=== PATIENT | female | born 1955 | race Caucasian/White ===

== ENCOUNTER → 2016-07-23 | Outpatient (CLI) | payer BC ==
[~2016-07-23] VITALS: Ht 152.4 cm; Wt 66.7 kg
[~2016-07-23] MED LIST: BENA10TA2 PO; CALC500T49 PO; LR 1,000 ML IV SCH; MAGN200T PO; PROPOFOL 200 MG/20 ML VIAL As Ordered ONE; RED1CAP5 PO; VITA100037 PO; VITA500T3 PO; ZYRT10TA2 PO
--- NOTE | 2016-07-23 09:07 | ROOR ---
Patient Name: Elisabeth Cortes Procedure Date: 07/23/2016 8:32 AM Date of : 1955 Age: 60 Room: [facility] Gender: Female Note Status: Finalized Procedure: Colonoscopy Indications: Abnormal CT of the GI tract, CT of abdomen showed thickening of the cecum/ileocecal valve area Providers: Garfield Nicole MD Referring MD: Racheal HASKINS MD Requesting Provider: Medicines: Monitored Anesthesia Care Complications: No immediate complications. Procedure: Pre-Anesthesia Assessment: - Prior to the procedure, a History and Physical was performed, and patient medications and allergies were reviewed. The patient is competent. The risks and benefits of the procedure and the sedation options and risks were discussed with the patient. All questions were answered and informed consent was obtained. Patient identification and proposed procedure were verified by the physician, the nurse and the anesthesiologist in the procedure room. Mental Status Examination: alert and oriented. Airway Examination: normal oropharyngeal airway and neck mobility. CV Examination: regular rate and rhythm. Prophylactic Antibiotics: The patient does not require prophylactic antibiotics. Prior Anticoagulants: The patient has taken no previous anticoagulant or antiplatelet agents. ASA Grade Assessment: II - A patient with mild systemic disease. After reviewing the risks and benefits, the patient was deemed in satisfactory condition to undergo the procedure. The anesthesia plan was to use monitored anesthesia care (MAC). Immediately prior to administration of medications, the patient was re-assessed for adequacy to receive sedatives. The heart rate, respiratory rate, oxygen saturations, blood pressure, adequacy of pulmonary ventilation, and response to care were monitored throughout the procedure. The physical status of the patient was re-assessed after the procedure. The Colonoscope was introduced through the anus and advanced to the terminal ileum, with identification of the appendiceal orifice and IC valve. The colonoscopy was performed without difficulty. The patient tolerated the procedure well. The quality of the bowel preparation was good. Findings: The perianal and digital rectal examinations were normal. A few medium-mouthed diverticula were found in the sigmoid colon and descending colon. The cecum and ileocecal valve and terminal ileum all appeared normal. Impression: - Diverticulosis in the sigmoid colon and in the descending colon. - No specimens collected. Recommendation: - Discharge patient to home. - Resume previous diet. - Continue present medications. - Repeat colonoscopy in 5 years for screening purposes. Garifeld Nicole MD 07/23/2016 9:06:31 AM Number of Addenda: 0 Note Initiated On: 07/23/2016 8:32 AM Estimated Blood Loss: Estimated blood loss: none.
[2016-07-23 09:15] VITALS: BP 177/83
== END | disposition home or self-care (01) ==
LOC: M OPP 06:48
PROVIDERS: ATTEND Surgery
DX: K57.30 Diverticulosis of large intestine without perforation or abscess without bleeding (principal); I10 Essential (primary) hypertension; M81.0 Age-related osteoporosis without current pathological fracture; R06.83 Snoring; Z80.0 Family history of malignant neoplasm of digestive organs; Z78.0 Asymptomatic menopausal state; Z79.899 Other long term (current) drug therapy; J30.89 Other allergic rhinitis

== ENCOUNTER → 2018-04-15 | Outpatient (CLI) | payer BC ==
[~2018-04-15] MED LIST changes: -BENA10TA2 PO; +BENA10TA6 PO; +GASTROGRAFIN SOLUTION 30ML (Q9963) As Ordered ONE; +ISOVUE-370 76% 100ML VIAL (Q9967) As Ordered ONE; -LR 1,000 ML IV SCH; -PROPOFOL 200 MG/20 ML VIAL As Ordered ONE; -VITA100037 PO; +VITA100067 PO; +ZYRT10CA5 PO; -ZYRT10TA2 PO
--- NOTE | 2018-04-15 15:17 | REP ---
Clinical: Right-sided abdominal pain. Technique: Axial contrast enhanced images from the lung bases to the pubic symphysis with oral (per protocol) and 100 ml Isovue 370 intravenous contrast material. Precontrast images of the abdomen as well as coronal and sagittal re-formations obtained. Findings: Liver demonstrates multiple hepatic hypodensities up to 10 mm which cannot be further characterized but likely represent small cysts. Spleen, pancreas, gallbladder, bilateral adrenal glands and kidneys are normal. Benign-appearing 1 cm left renal cyst noted. The enteric system is without obstruction or acute inflammatory process. Normal terminal ileum and appendix identified in the right lower quadrant. Pelvis demonstrates normal bladder and age-appropriate uterus/adnexa. No ascites. No free air. No significant adenopathy. Abdominal aorta and vasculature without aneurysm or dissection. Musculoskeletal structures are intact. Lung bases are clear. Impression: 1. Hepatic and left renal hypodensities up to 1 cm likely representing cysts which may be followed by ultrasound. 2. No further acute abdominopelvic pathology appreciated. Electronically Signed by Jaxon Hinojosa MD 04/15/2018 03:09 P
== END ==
LOC: M RAD 13:19
PROVIDERS: ATTEND Internal Medicine
DX: R10.9 Unspecified abdominal pain (principal); K76.89 Other specified diseases of liver; N28.1 Cyst of kidney, acquired
CPT/HCPCS: 74178; Q9963; Q9967

== ENCOUNTER → 2018-04-24 | Outpatient (CLI) | payer BC ==
[~2018-04-24] MED LIST changes: -GASTROGRAFIN SOLUTION 30ML (Q9963) As Ordered ONE; -ISOVUE-370 76% 100ML VIAL (Q9967) As Ordered ONE
--- NOTE | 2018-04-24 10:09 | REP ---
RIGHT UPPER QUADRANT ULTRASOUND: Real-time sonographic evaluation of the right upper quadrant performed. Gallbladder demonstrates no evidence of intraluminal sludge or calculi, wall thickening or pericholecystic fluid. There is no intrahepatic or extrahepatic biliary dilatation, common bile duct measuring 5 mm. Liver demonstrates diffuse heterogeneous increased echotexture compatible with diffuse fibrofatty infiltration. There are several liver cysts, one in the midline 9 x 7 x 8 mm, one on the right lobe adjacent to the gallbladder containing a septation measuring 1.7 x 1.1 x 1.9 cm. Another cyst in the right lobe measures 9 x 7 x 10 mm. Pancreas could not be visualized due to overlying bowel gas. Right kidney demonstrates no hydronephrosis with normal size 9.4 cm in length. There is no ascites. IMPRESSION: Diffuse fibrofatty infiltration of the liver. Three cysts are seen in the liver as discussed in detail above. Electronically Signed by Bertrand Hein MD 04/24/2018 01:41 P
== END ==
LOC: M RAD 07:57
PROVIDERS: ATTEND Internal Medicine
DX: K76.89 Other specified diseases of liver (principal); K76.0 Fatty (change of) liver, not elsewhere classified

== ENCOUNTER → 2018-08-31 | Outpatient (CLI) | payer BC, MEDICARE ==
[~2018-08-31] MED LIST changes: -BENA10TA6 PO; +BENA10TA9 PO; +CYAN500T8 PO; -VITA500T3 PO
--- NOTE | 2018-08-31 13:41 | REP ---
UNILATERAL DIAGNOSTIC RIGHT BREAST MAMMOGRAM WITH 3D TOMOSYNTHESIS: Unilateral mammogram right breast performed with 3D tomosynthesis. Additional spot compression views are performed laterally. Prior mammogram at [facility], 01/05/2018, showed a possible nodule in that region which appeared to compress out on additional spot compression views on 01/07/2018. There was no sonographic abnormality as well. Today's views are compared to those prior studies as well as 12/19/2016, 12/11/2015, and 12/07/2014. There is no evidence of a suspicious nodular density in the right breast. Tomographic appearance is unchanged compared back to the tomographic views performed 12/19/2016. There is no evidence of nodule, architectural distortion, or clustered microcalcifications. IMPRESSION: BIRADS 3: BI-RADS/ACR category 3 mammogram. Probably Benign Findings. ACR 3 probably benign. Once again, I do not see persistence of a suspected nodular density laterally in the right breast on today's views. Recommend the patient return to followup annual bilateral mammography 12/2018. This mammogram was interpreted with the aid of an FDA-approved computer-aided detection system. The patient states she/he had a clinical breast exam in 01/2018. The patient letter being requested is M3. Ana lifetime risk of breast cancer 8.2%. Electronically Signed by Bertrand Hein MD 08/31/2018 04:31 P
== END ==
LOC: M RAD 11:41
PROVIDERS: ATTEND Surgery
DX: N63.12 Unspecified lump in the right breast, upper inner quadrant (principal)
CPT/HCPCS: 77065; G0279

== ENCOUNTER → 2019-02-15 | Outpatient (CLI) | payer MEDICARE | LOC: M RAD 09:14 | PROVIDERS: ATTEND Internal Medicine | DX: Z12.31 Encounter for screening mammogram for malignant neoplasm of breast (principal); Z53.9 Procedure and treatment not carried out, unspecified reason ==

== ENCOUNTER → 2019-02-23 | Outpatient (CLI) | payer MEDICARE ==
--- NOTE | 2019-02-23 12:12 | REP ---
BILATERAL MAMMOGRAM WITH 3D TOMOSYNTHESIS AND DIAGNOSTIC MAMMOGRAM RIGHT BREAST: No family history of breast cancer. Tyrer-zi lifetime risk of breast cancer 8.2%. Comparison made with multiple prior exams, most recently 08/31/2018 and 01/07/2018. Somewhat nodular fibroglandular density laterally in the right breast was noted on the 01/05/2018 exam at [facility] and was stable on the 08/31/2018 exam. Today's images show moderate scattered fibroglandular tissue bilaterally. There is no change in the appearance of the breasts bilaterally when compared to the multiple prior exams. The focal nodular-appearing parenchymal opacity laterally on the right appears to compress out to an unchanged appearance compared to multiple prior exams dating back to 2015 with no persistent suspicious nodule present. No new nodule is seen. No clustered microcalcifications are seen. IMPRESSION: BIRADS 2: BI-RADS/ACR category 2 mammogram. Benign Findings. ACR 2 benign bilateral mammogram. No suspicious mass or clustered microcalcifications. Stable appearance of fibroglandular pattern. Recommend followup mammogram in 1 years. This mammogram was interpreted with the aid of an FDA-approved computer-aided detection system. A. Negative x-ray reports should not delay biopsy if a dominant or clinically suspicious mass is present. B. Four to eight percent of cancers are not identified by x-ray. C. Adenosis and dense breasts may obscure an underlying neoplasm. The patient letter being requested is M1. Electronically Signed by Bertrand Hein MD 02/24/2019 10:39 A
== END ==
LOC: M RAD 10:17
PROVIDERS: ATTEND Internal Medicine
DX: D48.61 Neoplasm of uncertain behavior of right breast (principal)
CPT/HCPCS: 77066; G0279

== ENCOUNTER → 2019-04-09 | Outpatient (CLI) | payer MEDICARE ==
[~2019-04-09] MED LIST changes: -BENA10TA9 PO; +BENA1TAB24 PO
--- NOTE | 2019-04-14 14:17 | DEXA ---
AP SPINE L1 - L4 0.980 -1.7 -0.1 LT FEMUR TOTAL 0.931 -0.6 0.6 LT NECK 0.827 -1.5 0.0 RT FEMUR TOTAL 0.879 -1.0 0.2 RT NECK 0.766 -2.0 -0.5 TOTAL BODY TOTAL OTHER COMMENTS: There is low bone density of the spine and hips. The decreased density of the spine does not represent a significant change. The increased density of the left hip does represent a significant change. The increased density of the right hip does represent a significant change. The density of the spine has increased 2.6% since the initial exam on 05/09/2010. The spine density has decreased 0.6% since the most recent exam on 12/19/2016. The density of the left hip has increased 4.5% since the initial exam on 05/09/2010. The density of the left hip has increased 2.8% since the most recent exam on 12/19/2016. The density of the right hip has decreased 2.0% since the initial exam on 05/09/2010. The density of the right hip has increased 7.2% since the most recent exam on 12/19/2016. FOLLOW-UP: Recommendation for the next bone density exam: 2 years. RUPERT
== END ==
LOC: M WHC 11:19
PROVIDERS: ATTEND Internal Medicine
DX: M81.0 Age-related osteoporosis without current pathological fracture (principal)

== ENCOUNTER → 2020-08-18 | Outpatient (CLI) | payer MEDICARE ==
[~2020-08-18] MED LIST changes: +CYAN500T14 PO; -CYAN500T8 PO
--- NOTE | 2020-08-18 08:50 | REPMRS ---
Patient History The patient states she had a clinical breast exam in 01/2020. Patient is postmenopausal. Family history of colorectal cancer at age 65 in mother. No Hormone Replacement Therapy Patient states no breast complaints today. Patient has signed MRS History Sheet. Digital Woman Screen Mammo: August 18, 2020 - Exam #: [id number] Bilateral CC and MLO view(s) were taken. Technologist: Barb Hopkins, Technologist Prior study comparison: February 23, 2019, digital mammo diagnostic bilateral, performed at [facility]. August 31, 2018, right breast digital mammo diagnostic unilateral, performed at [facility]. FINDINGS: There are scattered fibroglandular densities. Screening. Digital screening (2D) mammography was performed bilaterally in the CC and MLO projections. Additionally, breast tomosynthesis (3D mammography) was performed bilaterally in the CC and MLO projections. Todays exam was compared to the prior exams. By history, the patient has no complaints of a palpable breast abnormality or other significant breast complaints. The breasts are unchanged in size and shape. There are no sherin-soft tissue densities or spiculated masses. There is no internal architectural distortion. Once again, stable benign appearing calcifications are seen.There are no suspicious sherin-calcific clusters. Skin thickening or nipple retraction is not present. IMPRESSION: BI-RADS Category 2- Benign Findings. There is no evidence of malignant alteration of the breasts. Followup examination recommended in one year. The Volpara volumetric breast density category is B, there are scattered areas of fibroglandular density. This mammogram was read with the assistance of [employer],an FDA approved computer aided detection system for mammography. The lifetime Tyrer-Cuzick score is 7.8 % Negative x-ray reports should not delay surgical consultation if a dominant or clinically suspicious mass is present. Not all breast cancers can be identified by mammography. Therefore, we recommend that you continue to perform regular breast self-examination and physical examination and then promptly contact your physician of any concerns or changes. Adenosis and dense breasts may obscure an underlying neoplasm. Assessment: BI-RADS/ACR category 2 mammogram. Benign Findings. Recommendation Routine screening mammogram of both breasts in 1 year. Electronically Signed By: David Manuel DO 08/18/20 0849
== END ==
LOC: M WHC 07:50
PROVIDERS: ATTEND Internal Medicine
DX: Z12.31 Encounter for screening mammogram for malignant neoplasm of breast (principal); Z78.0 Asymptomatic menopausal state; Z80.8 Family history of malignant neoplasm of other organs or systems

== ENCOUNTER → 2021-09-20 | Outpatient (CLI) | payer MEDICARE | LOC: M WHC 08:55 | PROVIDERS: ATTEND Internal Medicine | DX: Z13.820 Encounter for screening for osteoporosis (principal); M81.0 Age-related osteoporosis without current pathological fracture; Z12.31 Encounter for screening mammogram for malignant neoplasm of breast; M85.88 Other specified disorders of bone density and structure, other site; M85.851 Other specified disorders of bone density and structure, right thigh; M85.852 Other specified disorders of bone density and structure, left thigh ==

== ENCOUNTER → 2021-11-11 | Outpatient (CLI) | payer MEDICARE ==
[~2021-11-11] MED LIST changes: +CALC500T68 PO; +CETI10TA4 PO; +D31000CA4 PO; +IBUP80TA PO
== END ==
LOC: M LABSMTC 11:30
PROVIDERS: ATTEND Anesthesiology
DX: Z01.812 Encounter for preprocedural laboratory examination (principal); Z20.822 Contact with and (suspected) exposure to COVID-19

== ENCOUNTER 2021-11-15 07:09 | Day surgery (SDC) | payer MEDICARE ==
[~2021-11-15] VITALS: Ht 152.4 cm; Wt 65.3 kg
[~2021-11-15 07:09] MED LIST changes: +NS 1,000 ML IV ONE
[2021-11-15] MEDS ORDERED: propofoL 200 MG/20 ML VIAL As Ordered ONE (08:31)
[2021-11-15] MEDS ORDERED: LIDOCAINE 2% 100MG/5ML SDV (FOR ANES.) As Ordered ONE (08:31)
[2021-11-15 08:50] VITALS: BP 145/70
== END 2021-11-15 09:03 | disposition home or self-care (01) ==
LOC: M OPP 07:09
PROVIDERS: ATTEND Surgery
DX: Z12.11 Encounter for screening for malignant neoplasm of colon (principal); Z86.010 Personal history of colon polyps; Z80.0 Family history of malignant neoplasm of digestive organs; K57.30 Diverticulosis of large intestine without perforation or abscess without bleeding; I10 Essential (primary) hypertension; M85.80 Other specified disorders of bone density and structure, unspecified site; Z79.1 Long term (current) use of non-steroidal anti-inflammatories (NSAID); Z79.811 Long term (current) use of aromatase inhibitors

== ENCOUNTER 2022-02-12 10:41 | Emergency (ER) | payer MEDICARE ==
[~2022-02-12] VITALS: Ht 152.4 cm; Wt 67.3 kg
[~2022-02-12 10:41] MED LIST changes: -NS 1,000 ML IV ONE
[2022-02-12] MEDS ORDERED: ACET-1349 PO (11:32)
[2022-02-12] MEDS ORDERED: GABAPENTIN 300 MG CAP PO ONE (17:25)
[2022-02-12 17:40] LABS: BASO % 0.6 % (0.0-1.0); EOS # 0.1 10^3/uL (0.0-0.5); EOS % 2.6 % (0.0-3.0); HEMATOCRIT 45.7 % (36.0-47.0); HEMOGLOBIN 15.1 g/dl (12.0-15.5); LYMPH # 1.4 10^3/uL (1.5-5.0); MEAN CORPUSCULAR HEMOGLOBIN 29.5 pg (27.0-33.0); MEAN CORPUSCULAR VOLUME 89.3 fl (80.0-96.0); MONO # 0.3 10^3/uL (0.0-0.8); MONO % 5.2 % (2.0-8.0); NEUTROPHILS # 3.2 10^3/uL (1.5-8.5); NEUTROPHILS % 63.4 % (36.0-66.0); PLATELET COUNT, AUTOMATED 288 10^3/uL (150-450); RED BLOOD COUNT 5.12 10^6/uL (4.00-5.40)
[2022-02-12 18:17] LABS: CHLORIDE LEVEL 103 MMOL/L (98-107); SODIUM LEVEL 141 MMOL/L (136-145)
[2022-02-12 18:18] LABS: ALBUMIN 4.4 G/DL (3.2-5.2); CARBON DIOXIDE LEVEL 26 MMOL/L (20-31)
[2022-02-12 18:23] LABS: BLOOD UREA NITROGEN 21 MG/DL (9-23); CALCIUM LEVEL 9.9 MG/DL (8.3-10.6); GLUCOSE, FASTING 87 MG/DL (74-106)
[2022-02-12 18:24] LABS: ALKALINE PHOSPHATASE 59 U/L (46-116)
[2022-02-12 18:25] LABS: ALT/SGPT 16 U/L (7.0-40); AST/SGOT 18 U/L (<34); BILIRUBIN,TOTAL 0.5 MG/DL (0.3-1.2); CREATININE FOR GFR 0.94 MG/DL (0.55-1.30); GLOMERULAR FILTRATION RATE > 60.0 (>45); TOTAL PROTEIN 7.7 G/DL (5.7-8.2)
[2022-02-12 18:34] LABS: POTASSIUM SERUM 4.2 MMOL/L (3.5-5.1)
[2022-02-12] MEDS ORDERED: CARB100T PO (19:49)
[2022-02-12] MEDS ORDERED: GABA-282 PO (19:49)
[2022-02-12 19:55] VITALS: BP 156/84
== END 2022-02-12 19:57 | disposition home or self-care (01) ==
LOC: M ED 10:41
DX: G50.0 Trigeminal neuralgia (principal); G50.1 Atypical facial pain; I10 Essential (primary) hypertension; Z79.899 Other long term (current) drug therapy; J30.89 Other allergic rhinitis

== ENCOUNTER → 2022-02-15 | Outpatient (REF) | payer MEDICARE ==
[~2022-02-15] MED LIST changes: +ACET-1349 PO; +CARB100T PO; +GABA-282 PO
[2022-02-15 19:26] LABS: FOLATE 16.6 NG/ML (>5.4); RHEUMATOID FACTOR QUANT < 3.5 IU/ML (<14); TOTAL PROTEIN 7.6 GM/DL (6.4-8.2); VITAMIN B12 LEVEL 276 PG/ML (211-911)
[2022-02-18 14:12] LABS: ANTINUCLEAR ANTIBODIES DIRECT Negative (Negative)
[2022-02-19 11:57] LABS: ALBUMIN 4.61 GM/DL (3.29-5.55); ALBUMIN % 60.7 % (55.8-66.1); ALPHA-1-GLOBULIN % 3.9 % (2.9-4.9); ALPHA-2-GLOBULINS 0.73 GM/DL (0.42-0.99); ALPHA-2-GLOBULINS % 9.6 % (7.1-11.8); BETA-1-GLOBULINS % 6.6 % (4.7-7.2); BETA-2-GLOBULINS 0.44 GM/DL (0.19-0.55); BETA-2-GLOBULINS % 5.8 % (3.2-6.5); GAMMA GLOBULIN % 13.4 % (11.1-18.8); GAMMA GLOBULINS 1.02 GM/DL (0.65-1.58)
== END ==
LOC: M LAB REF 16:40
PROVIDERS: ATTEND Internal Medicine
DX: G50.0 Trigeminal neuralgia (principal)

== ENCOUNTER → 2022-03-26 | Outpatient (REF) | payer MEDICARE | LOC: M LAB REF 16:15 | PROVIDERS: ATTEND Internal Medicine | DX: G50.0 Trigeminal neuralgia (principal) ==

== ENCOUNTER → 2022-04-01 | Outpatient (CLI) | payer MEDICARE | LOC: M PLAIMG 10:07 | PROVIDERS: ATTEND Otolaryngology | DX: J32.9 Chronic sinusitis, unspecified (principal); J34.2 Deviated nasal septum ==

== ENCOUNTER → 2022-10-17 | Outpatient (CLI) | payer MEDICARE | LOC: M WHC 08:56 | PROVIDERS: ATTEND Internal Medicine | DX: Z12.31 Encounter for screening mammogram for malignant neoplasm of breast (principal) ==

== ENCOUNTER → 2023-11-14 | Outpatient (CLI) | payer OTHER ==
[~2023-11-14] MED LIST changes: -CARB100T PO; +CARB100T11 PO
== END ==
LOC: M WHC 07:32
PROVIDERS: ATTEND Internal Medicine
DX: Z12.31 Encounter for screening mammogram for malignant neoplasm of breast (principal); M85.89 Other specified disorders of bone density and structure, multiple sites

== ENCOUNTER → 2024-12-06 | Outpatient (CLI) | payer MEDICARE ==
[~2024-12-06] MED LIST changes: +GABA-1172 PO; -GABA-282 PO
== END ==
LOC: M WHC 07:56
PROVIDERS: ATTEND Family Medicine
DX: Z12.31 Encounter for screening mammogram for malignant neoplasm of breast (principal); R92.313 Mammographic fatty tissue density, bilateral breasts